=== PATIENT | male | born 2000 | race Caucasian/White ===

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

== ENCOUNTER 2021-05-11 15:48 | Emergency (ER) | payer OTHER ==
--- NOTE | 2021-05-12 17:35 | EDPHYS ---
Physician Documentation [facility] Name: Salvatore Barber Age: 21 yrs Sex: Male : 2000 Arrival Date: 05/11/2021 Time: 15:51 Bed Waiting Private MD: ED Physician Travis Calderon HPI: 05/11 16:57 This 21 yrs old Male presents to ER via Ambulatory with complaints of Fever, jmm Body Aches. 16:57 The patient reports fever, not measured (subjective). Onset: The symptoms/episode jmm began/occurred 1 day(s) ago. Modifying factors: there are no obvious modifying factors. Associated signs and symptoms: Pertinent positives: night sweats. Is a 21-year-old male no chronic medical conditions presents emerged part with complaints of body aches, chills beginning last night. Denies shortness of breath, vomiting, diarrhea. Denies abdominal pain.. Historical: - Allergies: 16:54 No Known Allergies; kg - Home Meds: 16:54 None [Active]; kg - PMHx: 16:54 jaw dislocation; lock jaw; kg - PSHx: 16:54 None; kg - Immunization history:: Adult Immunizations not up to date, Client reports having NOT received the Covid vaccine. - Social history:: Smoking status: Patient reports the use of cigarette tobacco products, smokes one-half pack cigarettes per day, Patient uses alcohol, admits to "couple of beers" a day. street drugs, marijuana. ROS: 16:57 Cardiovascular: Negative for chest pain, palpitations, and edema, Respiratory: Negative jmm for shortness of breath, cough, wheezing, and pleuritic chest pain, Abdomen/GI: Negative for abdominal pain, nausea, vomiting, diarrhea, and constipation. 16:57 Constitutional: Positive for body aches, fever. 16:57 All other systems are negative. Exam: 16:57 Constitutional: This is a well developed, well nourished patient who is awake, alert, jmm and in no acute distress. Head/Face: atraumatic. Eyes: EOMI, no conjunctival erythema appreciated ENT: Moist Mucus Membranes Neck: Trachea midline, Supple Chest/axilla: Normal chest wall appearance and motion. Cardiovascular: Regular rate and rhythm. No edema appreciated Respiratory: Normal respirations, no respiratory distress appreciated Abdomen/GI: Non distended, soft Back: Normal ROM Skin: General appearance color normal MS/ Extremity: Moves all extremities, no obvious deformities appreciated, no edema noted to the lower extremities Neuro: Awake and alert, normal gait Psych: Behavior is normal, Mood is normal, Patient is cooperative and pleasant 16:57 Respiratory: the patient does not display signs of respiratory distress, Respirations: normal, Breath sounds: are clear throughout. Vital Signs: 16:52 BP 114 / 77; Pulse 73; Resp 18; Temp 99.7(O); Pulse Ox 98% on R/A; Weight 56.47 kg (M); kg Height 5 ft. 7 in. (170.18 cm); Pain 6/10; 16:52 Body Mass Index 19.50 (56.47 kg, 170.18 cm) kg MDM: 19:20 Data reviewed: vital signs, nurses notes. Counseling: I had a detailed discussion with elmer the patient and/or guardian regarding: the historical points, exam findings, and any diagnostic results supporting the discharge/admit diagnosis, lab results, the need for outpatient follow up, to return to the emergency department if symptoms worsen or persist or if there are any questions or concerns that arise at home. ED course: Patient is alert nontoxic in appearance in the ED. Patient given strict return precautions for increased shortness of breath, vomiting, or diarrhea, etc. Patient understood and agrees to plan of care.. 19:21 Patient medically screened. [facility] 05/11 16:56 Order name: Flu; Complete Time: 19:23 kg 05/11 16:56 Order name: Strep; Complete Time: 19:23 kg 05/11 17:26 Order name: Throat Culture [facility] 05/11 18:29 Order name: SARS-COV-2 RT PCR; Complete Time: 19:23 [facility] Administered Medications: No medications were administered Disposition: 05/12 06:03 Co-signature as Attending Physician, Travis Calderon MD. rn Disposition Summary: 05/11/21 19:21 Discharge Ordered Location: Home demar Condition: Stable demar Diagnosis - Coronavirus infection, unspecified demar Followup: elmer - With: Private Physician - When: 2 - 3 days - Reason: Recheck today's complaints, Continuance of care, Re-evaluation by your physician Discharge Instructions: - Discharge Summary Sheet [facility] - COVID-19 [facility] Forms: - Medication Reconciliation Form jmm - Thank You Letter jmm - Antibiotic Education jmm - Prescription Opioid Use jm Signatures: Dispatcher [employer] EDMS Mahendra Sarkar PA PA jmm Nieto, Roman, MD MD rn Graham, Kristen, RN RN kg Corrections: (The following items were deleted from the chart) 05/11 17:34 16:57 CORONAVIRUS+MR.LAB.BRZ ordered. EDMS EDMS
--- NOTE | 2021-05-12 17:35 | ER ---
Nurse's Notes [facility] Name: Salvatore Barber Age: 21 yrs Sex: Male : 2000 Arrival Date: 05/11/2021 Time: 15:51 Bed Waiting Private MD: Diagnosis: Coronavirus infection, unspecified Presentation: 05/11 16:52 Chief complaint: Patient states: Pt complained of soreness, chills x 1 day. Coronavirus kg screen: Client denies travel out of the [place] in the last 14 days. At this time, unable to obtain information related to travel outside the [place] At this time, the client does not indicate any symptoms associated with coronavirus-19. Ebola Screen: Patient negative for fever greater than or equal to 101.5 degrees Fahrenheit, and additional compatible Ebola Virus Disease symptoms Patient denies exposure to infectious person. Patient denies travel to an Ebola-affected area in the 21 days before illness onset. Initial Sepsis Screen: Does the patient meet any 2 criteria? No. Patient's initial sepsis screen is negative. Does the patient have a suspected source of infection? No. Patient's initial sepsis screen is negative. Risk Assessment: Do you want to hurt yourself or someone else? Patient reports no desire to harm self or others. Onset of symptoms was May 10, 2021. 16:52 Method Of Arrival: Ambulatory kg 16:52 Acuity: DONOVAN 4 kg Triage Assessment: 16:54 General: Appears in no apparent distress. Behavior is calm, cooperative, appropriate kg for age, quiet. Pain: Denies pain. Historical: - Allergies: 16:54 No Known Allergies; kg - Home Meds: 16:54 None [Active]; kg - PMHx: 16:54 jaw dislocation; lock jaw; kg - PSHx: 16:54 None; kg - Immunization history:: Adult Immunizations not up to date, Client reports having NOT received the Covid vaccine. - Social history:: Smoking status: Patient reports the use of cigarette tobacco products, smokes one-half pack cigarettes per day, Patient uses alcohol, admits to "couple of beers" a day. street drugs, marijuana. Screenin:55 Abuse screen: Denies threats or abuse. Denies injuries from another. Nutritional kg screening: No deficits noted. Tuberculosis screening: No symptoms or risk factors identified. Fall Risk None identified. Assessment: 16:55 General: Appears in no apparent distress. Behavior is calm, cooperative, appropriate kg for age, quiet. Pain: Denies pain. Complains of pain in Generalized Pain currently is 7 out of 10 on a pain scale. at worst was 9 out of 10 on a pain scale. level that patient reports is acceptable is 3 out of 10 on a pain scale. Quality of pain is described as aching. Neuro: No deficits noted. Cardiovascular: Heart tones S1 S2. Respiratory: Reports shortness of breath cough that is pain with cough Airway is patent Trachea midline Respiratory effort is even, unlabored, relaxed, Respiratory pattern is regular, Breath sounds are clear bilaterally. GI: No deficits noted. : No deficits noted. EENT: No deficits noted. Derm: No deficits noted. Musculoskeletal: No deficits noted. Vital Signs: 16:52 BP 114 / 77; Pulse 73; Resp 18; Temp 99.7(O); Pulse Ox 98% on R/A; Weight 56.47 kg (M); kg Height 5 ft. 7 in. (170.18 cm); Pain 6/10; 16:52 Body Mass Index 19.50 (56.47 kg, 170.18 cm) kg ED Course: 15:51 Patient arrived in ED. rg4 16:54 Triage completed. kg 16:54 Arm band placed on. kg 16:55 Patient has correct armband on for positive identification. kg 17:00 No provider procedures requiring assistance completed. kg 18:29 Mahendra Sarkar PA is PHCP. [facility] 18:29 Travis Calderon MD is Attending Physician. [facility] 19:20 Patient did not have IV access during this emergency room visit. kg Administered Medications: No medications were administered Outcome: 19:00 Discharged to home ambulatory. kg 19:00 Condition: stable 19:00 Discharge instructions given to patient, Instructed on discharge instructions, follow up and referral plans. Demonstrated understanding of instructions, follow-up care. 19:21 Discharge ordered by . jmm 19:32 Patient left the ED. kg Signatures: Mahendra Sarkar PA PA jmm Garcia, Rubi rg4 Jaymie De Anda, RN RN kg
[2021-05-13 13:23] VITALS: BP 114/77; TEMP 99.7; O2SAT 98
== END 2021-05-11 19:32 | disposition home or self-care (01) ==
LOC: ER 15:48
DX: U07.1 COVID-19 (principal); F17.210 Nicotine dependence, cigarettes, uncomplicated
CPT/HCPCS: 87070; 87081; 87804 ×2; U0003

== ENCOUNTER 2022-07-05 16:31 | Emergency (ER) | payer SELFPAY ==
[2022-07-05] MEDS ORDERED: METHYLPREDNISOLONE 125 MG INJ ONE (17:02)
[2022-07-05] MEDS ORDERED: DIPHENHYDRAMINE 50 MG/ML VIAL ONE (17:02)
[2022-07-05] MEDS ORDERED: NA CHLORIDE 0.9% 1,000 ML ONE (17:03)
--- NOTE | 2022-07-05 18:37 | EDPHYS ---
Physician Documentation [facility] Name: Salvatore Barber Age: 22 yrs Sex: Male : 2000 Arrival Date: 07/05/2022 Time: 16:33 Bed 12 Private MD: ED Physician Chen Valdes HPI: 07/06 01:15 This 22 yrs old Male presents to ER via Ambulatory with complaints of Bee kb Sting. 01:15 The patient presents with shortness of breath, tingling to arms and throat feels tight. kb Onset: The symptoms/episode began/occurred just prior to arrival. Associated signs and symptoms: Pertinent positives: shortness of breath. Possible causes: wasp. At home the patient or guardian has treated the symptoms with nothing. Severity of symptoms: At their worst the symptoms were moderate in the emergency department the symptoms are unchanged. The patient has not experienced similar symptoms in the past. The patient has not recently seen a physician. Pt reports he was doing yard work and was stung by a wasp. 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 States he felt short of breath, tingling to upper extremities and tightness/swelling in the throat. Historical: - Allergies: 07/05 16:42 Bees; ph 16:42 Wasps; ph - Home Meds: 16:42 None [Active]; ph - PMHx: 16:42 jaw dislocation; lock jaw; ph - Immunization history:: Adult Immunizations unknown. - Social history:: Smoking status: Reported history of juuling and/or vaping. ROS: 07/06 01:14 Constitutional: Negative for fever, chills, and weight loss. kb ENT: Positive for throat feels like it is closing. Respiratory: Positive for shortness of breath. All other systems are negative. Exam: 01:14 Constitutional: This is a well developed, well nourished patient who is awake, alert, kb and in no acute distress. Head/Face: Normocephalic, atraumatic. ENT: Moist Mucous membranes Cardiovascular: Regular rate and rhythm with a normal S1 and S2. No gallops, murmurs, or rubs. No pulse deficits. Respiratory: Respirations even and unlabored. No increased work of breathing. Talking in full sentences Skin: Warm, dry with normal turgor. Normal color. MS/ Extremity: Pulses equal, no cyanosis. Neurovascular intact. Full, normal range of motion. Neuro: Awake and alert, GCS 15, oriented to person, place, time, and situation. Moves all extremities. Normal gait. Psych: Awake, alert, with orientation to person, place and time. Behavior, mood, and affect are within normal limits. Vital Signs: 07/05 16:38 BP 121 / 64; Pulse 81; Resp 18; Temp 97.1; Pulse Ox 100% on R/A; Weight 54.43 kg; ph Height 5 ft. 7 in. (170.18 cm); 19:38 BP 119 / 60; Pulse 77; Resp 18 S; Pulse Ox 100% on R/A; as6 16:38 Body Mass Index 18.79 (54.43 kg, 170.18 cm) ph MDM: 16:42 Patient medically screened. kb 07/06 01:14 Data reviewed: vital signs, nurses notes. Data interpreted: Pulse oximetry: on room air kb is 100 %. Interpretation: normal. Counseling: I had a detailed discussion with the patient and/or guardian regarding: the historical points, exam findings, and any diagnostic results supporting the discharge/admit diagnosis, the need for outpatient follow up, a family practitioner, to return to the emergency department if symptoms worsen or persist or if there are any questions or concerns that arise at home. 01:15 Response to treatment: the patient's symptoms have resolved after treatment. kb 07/05 16:48 Order name: IV Start; Complete Time: 16:50 kb Administered Medications: 07/05 16:55 Drug: NS 0.9% 1000 ml Route: IV; Rate: 1000 ml; Site: right forearm; jl7 19:38 Follow up: Response: No adverse reaction; IV Status: Completed infusion; IV Intake: as6 1000ml 16:55 Drug: SOLU-Medrol (methylPrednisoLONE) 125 mg Route: IVP; Site: right forearm; jl7 19:39 Follow up: Response: No adverse reaction as6 16:57 Drug: Pepcid (famotidine) 20 mg Route: IVP; Site: right forearm; jl7 19:39 Follow up: Response: No adverse reaction as6 16:59 Drug: Benadryl (diphenhydrAMINE) 25 mg Route: IVP; Site: right forearm; jl7 19:38 Follow up: Response: No adverse reaction as6 Disposition: 07/06 07:40 STAFF ATTESTATION STATEMENT: I was immediately available onsite in the emergency sd2 department for consultation in the care of this patient. I did not see or examine this patient. Chen Valdes MD. Disposition Summary: 07/05/22 18:37 Discharge Ordered Location: Home kb Condition: Stable kb Diagnosis - Bee allergy status kb Followup: kb - With: Emergency Department - When: As needed - Reason: Worsening of condition Followup: kb - With: Private Physician - When: 2 - 3 days - Reason: Recheck today's complaints, Continuance of care, Re-evaluation by your physician Discharge Instructions: - Discharge Summary Sheet kb - Bee, Wasp, or Hornet Sting, Adult kb Forms: - Medication Reconciliation Form kb - Thank You Letter kb - Antibiotic Education kb - Prescription Opioid Use kb Prescriptions: - Pepcid 20 mg Oral Tablet - take 1 tablet by ORAL route every 12 hours for 5 days; 10 tablet; Refills: 0, kb Product Selection Permitted - Prednisone 20 mg Oral Tablet - take 1 tablet by ORAL route once daily for 5 days; 5 tablet; Refills: 0, kb Product Selection Permitted Signatures: Deb Delacruz FNP-C FNP-Nicki Foreman, RN RN Fran Concepcion RN RN jl7 Chen Valdes MD MD mo2 Darwin Montgomery RN as6
--- NOTE | 2022-07-05 18:37 | ER ---
Nurse's Notes [facility] Name: Salvatore Barber Age: 22 yrs Sex: Male : 2000 Arrival Date: 07/05/2022 Time: 16:33 Bed 12 Private MD: Diagnosis: Bee allergy status Presentation: 07/05 16:38 Chief complaint: Patient states: Stung on R upper back by wasp while doing yardwork, ph reports hx of allergy to bees and wasps, reports burning sensation to neck, back and face, tingling to bilateral hands, mild SOB, states, " I may be freaking out though." Also reports generalized weakness. Coronavirus screen: Vaccine status: Patient reports receiving the 1st dose of the Covid vaccine. Ebola Screen: No symptoms or risks identified at this time. Onset: The symptoms/episode began/occurred acutely. Anaphylaxis evaluation, no signs or symptoms of anaphylaxis were noted. Initial Sepsis Screen: Does the patient meet any 2 criteria? No. Patient's initial sepsis screen is negative. Does the patient have a suspected source of infection? No. Patient's initial sepsis screen is negative. Risk Assessment: Do you want to hurt yourself or someone else? Patient reports no desire to harm self or others. Onset of symptoms was July 05, 2022. 16:38 Method Of Arrival: Ambulatory 16:38 Acuity: DONOVAN 4 ph Historical: - Allergies: 16:42 Bees; ph 16:42 Wasps; ph - Home Meds: 16:42 None [Active]; ph - PMHx: 16:42 jaw dislocation; lock jaw; ph - Immunization history:: Adult Immunizations unknown. - Social history:: Smoking status: Reported history of juuling and/or vaping. Screenin:00 Abuse screen: Denies threats or abuse. Denies injuries from another. Nutritional jl7 screening: No deficits noted. Tuberculosis screening: No symptoms or risk factors identified. Fall Risk IV access (20 points). Total Powell Fall Scale indicates No Risk (0-24 pts). Assessment: 17:00 General: Appears in no apparent distress. uncomfortable, Behavior is calm, cooperative, jl7 appropriate for age. Pain: Denies pain. Neuro: Level of Consciousness is awake, alert, obeys commands, Oriented to person, place, time, situation. Respiratory: Airway is patent Respiratory effort is even, unlabored, Respiratory pattern is regular, symmetrical, Breath sounds are clear bilaterally. Derm: Skin is pink, warm \\T\\ dry. 18:00 Reassessment: Patient appears in no apparent distress at this time. Patient and/or jl7 family updated on plan of care and expected duration. Pain level reassessed. Patient is alert, oriented x 3, equal unlabored respirations, skin warm/dry/pink. Patient states feeling better. Vital Signs: 16:38 BP 121 / 64; Pulse 81; Resp 18; Temp 97.1; Pulse Ox 100% on R/A; Weight 54.43 kg; ph Height 5 ft. 7 in. (170.18 cm); 19:38 BP 119 / 60; Pulse 77; Resp 18 S; Pulse Ox 100% on R/A; as6 16:38 Body Mass Index 18.79 (54.43 kg, 170.18 cm) ph ED Course: 16:33 Patient arrived in ED. mr 16:35 Deb Delacruz FNP-C [facility]. kb 16:35 Chen Valdes MD is Attending Physician. kb 16:42 Triage completed. ph 16:43 Arm band placed on. ph 16:50 Inserted saline lock: 20 gauge in right forearm, using aseptic technique. dh3 17:00 Patient has correct armband on for positive identification. Pulse ox on. NIBP on. jl7 17:00 No provider procedures requiring assistance completed. jl7 19:37 Darwin Montgomery, RN is Primary Nurse. as6 19:38 IV discontinued, intact, bleeding controlled, No redness/swelling at site. Pressure as6 dressing applied. Administered Medications: 16:55 Drug: NS 0.9% 1000 ml Route: IV; Rate: 1000 ml; Site: right forearm; jl7 19:38 Follow up: Response: No adverse reaction; IV Status: Completed infusion; IV Intake: as6 1000ml 16:55 Drug: SOLU-Medrol (methylPrednisoLONE) 125 mg Route: IVP; Site: right forearm; jl7 19:39 Follow up: Response: No adverse reaction as6 16:57 Drug: Pepcid (famotidine) 20 mg Route: IVP; Site: right forearm; jl7 19:39 Follow up: Response: No adverse reaction as6 16:59 Drug: Benadryl (diphenhydrAMINE) 25 mg Route: IVP; Site: right forearm; jl7 19:38 Follow up: Response: No adverse reaction as6 Medication: 18:00 VIS not applicable for this client. jl7 Intake: 19:38 IV: 1000ml; Total: 1000ml. as6 Outcome: 18:37 Discharge ordered by . pascual 19:38 Discharged to home ambulatory. as6 19:38 Condition: stable 19:38 Discharge instructions given to patient, Instructed on discharge instructions, follow up and referral plans. medication usage, Demonstrated understanding of instructions, follow-up care, medications, Prescriptions given X 2. 19:39 Patient left the ED. as6 Signatures: Deb Delacruz, KYARA WASHINGTONP-Soraya Fontana mr Nicki Sainz RN RN Fran Fermin RN RN jl7 Wendi Patino [facility] Darwin Montgomery RN RN as6
[2022-07-07 01:20] VITALS: TEMP 97.1; O2SAT 100
[2022-07-07 01:22] VITALS: BP 119/60
== END 2022-07-05 19:39 | disposition home or self-care (01) ==
LOC: ER 16:31
DX: T63.441A Toxic effect of venom of bees, accidental (unintentional), initial encounter (principal); Z91.030 Bee allergy status; Z91.038 Other insect allergy status
CPT/HCPCS: 96361; 96374; 96375; 99284; J1200; J2930; J7030